=== PATIENT | female | born 1960 | race American Indian/Alaskan Native ===

== ENCOUNTER 2018-11-24 11:59 | Outpatient (CLI) | payer MEDICAID | END 2018-11-24 12:00 | disposition home or self-care (01) | LOC: C.LAB 11:59 | DX: N18.4 Chronic kidney disease, stage 4 (severe) (principal) ==

== ENCOUNTER 2018-11-29 09:20 | Outpatient (CLI) | payer MEDICAID | END 2018-11-29 09:21 | disposition home or self-care (01) | LOC: C.USIC 09:20 | DX: N18.4 Chronic kidney disease, stage 4 (severe) (principal) ==